=== PATIENT | male | born 1960 | race Caucasian/White ===

== ENCOUNTER 2017-08-19 15:27 | Emergency (ER) | payer MEDICAID ==
[2017-08-19 15:51] VITALS: BP 152/79
--- NOTE | 2017-08-19 16:11 | ER Document Report ---
ED Hand/Wrist Injury - General Chief Complaint: Finger Injury Stated Complaint: FINGER INJURY Time Seen by Provider: 08/19/17 16:05 Mode of Arrival: Ambulatory Information source: Patient TRAVEL OUTSIDE OF THE [place] IN LAST 30 DAYS: No - HPI Patient complains to provider of: wound L long finger Onset: Other - pt. states he has had a wound on his L long finger for "over a year" that "will not heal" - Related Data Allergies/Adverse Reactions: Penicillins Allergy (Verified 08/19/17 15:29) Past Medical History - General Information source: Patient - Social History Smoking Status: Current Every Day Smoker Chew tobacco use (# tins/day): No Frequency of alcohol use: None Drug Abuse: None Family History: None Patient has suicidal ideation: No Patient has homicidal ideation: No Renal/ Medical History: Denies: Hx Peritoneal Dialysis Review of Systems - Review of Systems Constitutional: No symptoms reported EENT: No symptoms reported Cardiovascular: No symptoms reported Respiratory: No symptoms reported Gastrointestinal: No symptoms reported -: Yes All other systems reviewed and negative Physical Exam - Vital signs Vitals: Temp Pulse Resp BP Pulse Ox 97.5 F 56 L 16 152/79 H 95 08/19/17 15:50 08/19/17 15:50 08/19/17 15:50 08/19/17 15:50 08/19/17 15:50 - General General appearance: Appears well In distress: None - Skin Skin irregularity: other - there is a open lesion on the dorsal aspect of the L long finger proximal phalanx without drainage or erythema. There is FROM of the digit; N/V intact Course - Vital Signs Vital signs: Temp Pulse Resp BP Pulse Ox 97.5 F 56 L 16 152/79 H 95 08/19/17 15:50 08/19/17 15:50 08/19/17 15:50 08/19/17 15:50 08/19/17 15:50 Discharge - Discharge Clinical Impression: Open wound Condition: Stable Disposition: HOME, SELF-CARE Additional Instructions: rest, take meds as prescribed, call wound care center in 2 days at [phone]; return here if worse Prescriptions: Cephalexin Monohydrate [Keflex 500 mg Capsule] 500 mg PO QID #20 capsule Diclofenac Sodium [Voltaren] 75 mg PO BID #14 tablet.
== END 2017-08-19 16:16 | disposition home or self-care (01) ==
LOC: ER 15:27
DX: S61.203A Unspecified open wound of left middle finger without damage to nail, initial encounter (principal); W45.0XXA Nail entering through skin, initial encounter; F17.200 Nicotine dependence, unspecified, uncomplicated; Z88.0 Allergy status to penicillin
CPT/HCPCS: 99283

== ENCOUNTER 2017-10-27 20:03 | Emergency (ER) | payer MEDICAID ==
--- NOTE | 2017-10-27 20:42 | ER Document Report ---
HPI - HPI Pain Level: 4 Notes: Patient is a 57-year-old male presents to the ED complaining of a chronic open wound to the left posterior third digit 1 year. Patient states that he has been evaluated at the emergency department August and has also been seen by a wound clinic. Patient states that his wound has not been healing. He denies any history of diabetes. Patient does admit to smoking but denies IV drug use. Patient states that he has continued pain to the open wound as well. Denies any other recent illness. He is eating and drinking without any difficulties. He is urinating normally and having normal bowel movements. Denies any headache , fever, neck pain, URI, sore throat, chest pain, palpitations, syncope, cough, shortness of breath, wheeze, dyspnea, abdominal pain, nausea/vomiting/diarrhea, urinary retention, dysuria, hematuria, numbness/tingling, muscle paralysis/ weakness, or rash. - ROS Systems Reviewed and Negative: Yes All other systems reviewed and negative Past Medical History - Social History Smoking Status: Current Every Day Smoker Family History: None Renal/ Medical History: Denies: Hx Peritoneal Dialysis Vertical Provider Document - CONSTITUTIONAL Agree With Documented VS: Yes Notes: PHYSICAL EXAMINATION: GENERAL: Well-appearing, well-nourished and in no acute distress. LUNGS: Breath sounds clear to auscultation bilaterally and equal. No wheezes rales or rhonchi. HEART: Regular rate and rhythm without murmurs, rubs, gallops. Musculoskeletal: Left hand: FROM to passive/active. Strength 5+/5. N/V intact distal. There does appear to be a chronic appearing open wound ([id number]) to the posterior prox phalanx of the 3rd digit. + mild tenderness. No purulence, streaks, abscess. Extremities: No cyanosis, clubbing, or edema b/l. Peripheral pulses 2+. Capillary refill less than 3 seconds. NEUROLOGICAL: Normal speech, normal gait. Normal sensory, motor exams PSYCH: Normal mood, normal affect. SKIN: see MSK exam. Warm, Dry, normal turgor, no rashes or lesions noted. - INFECTION CONTROL TRAVEL OUTSIDE OF THE [place] IN LAST 30 DAYS: No - RESPIRATORY O2 Sat by Pulse Oximetry: 95 Course - Re-evaluation Re-evalutation: 10/27/17 21:30 Patient is an afebrile, well-hydrated, 57-year-old male who presents to the ED with a nonhealing wound to the left posterior third digit. This is been an ongoing issue over the last year. Vitals are stable. PE is otherwise unremarkable. At this time, there does not appear to be an acute superficial bacterial infection associated. I will send him home with a pocket prescription of Keflex that he may begin with any worsening symptoms while awaiting follow-up. Wound dressing was placed today. Recommend continued direction per the wound clinic. X-ray was unremarkable for any acute pathology aside from a small radiopaque 3 mm foreign body to the proximal phalanx of the lateral thumb. This does not appear to be an acute injury as the skin has no signs of trauma. Low suspicion for any sepsis, septic joint, osteomyelitis, necrotizing fasciitis, or other systemic emergent condition at this time. Patient to monitor symptoms closely and seek medical attention with any acute changes. I will give him a referral to general surgeon for further evaluation and management. Recheck with your PCM in 3-5 days as well. Return to the ED with any worsening/concerning symptoms otherwise as reviewed discharge. Patient is in agreement. - Vital Signs Vital signs: Temp Pulse Resp BP Pulse Ox 97.6 F 70 14 151/77 H 95 10/27/17 20:11 10/27/17 20:11 10/27/17 20:11 10/27/17 20:11 10/27/17 20:11 Discharge - Discharge Clinical Impression: Non-healing wound Condition: Stable Disposition: HOME, SELF-CARE Instructions: Soap Cleansing ([facility]) Additional Instructions: Keep the skin clean Wash with soap and water Tylenol/ibuprofen if needed Triple antibiotic ointment daily Take medication as directed Monitor for any worsening symptoms Recheck with your PCM in 3-5 days Schedule a consult with General Surgeon for further evaluation and management. Consider having the foreign body removed from your thumb by a surgeon (General surgeon vs Orthopedic). Return to the ED with any worsening symptoms and/or development of fever, headache, chest pain, palpitations, syncope, shortness of breath, trouble breathing, abdominal pain, n/v/d, abscess, purulent discharge, red streaks, worsening swelling, or other worsening symptoms that are concerning to you. Prescriptions: Cephalexin Monohydrate [Keflex 500 mg Capsule] 500 mg PO TID #30 capsule Forms: Smoking Cessation Education, Elevated Blood Pressure Referrals: SPRING CARLOS DO [ACTIVE STAFF] - Follow up as needed CRYSTAL ALVARADO MD [ACTIVE STAFF] - Follow up in 3-5 days
--- NOTE | 2017-10-27 21:23 | RADIOLOGY REPORT (SQ) ---
EXAM DESCRIPTION: HAND LEFT 3 VIEWS COMPLETED DATE/TIME: 10/27/2017 9:12 pm REASON FOR STUDY: left open wound x1yr posterior 3rd prox digit COMPARISON: None. EXAM PARAMETERS: NUMBER OF VIEWS: Three views. TECHNIQUE: AP, lateral and oblique radiographic images acquired of the left hand. LIMITATIONS: None. FINDINGS: MINERALIZATION: Normal. BONES: No acute fracture or dislocation. No worrisome bone lesions. JOINTS: No effusions. SOFT TISSUES: No soft tissue swelling. 3 mm linear radiopaque density adjacent to the distal end of the proximal phalanx of the thumb. OTHER: No other significant finding. IMPRESSION: 3 MM LINEAR RADIOPAQUE FOREIGN OBJECT IN THE SOFT TISSUES ADJACENT TO THE DISTAL END OF THE PROXIMAL PHALANX OF THE THUMB. NO OTHER SIGNIFICANT FINDINGS. NO ABNORMAL FINDINGS INVOLVING TH E 3RD FINGER. TECHNICAL DOCUMENTATION: JOB ID: [id number] [employer]- All Rights Reserved
[2017-10-27 21:58] VITALS: BP 133/75
== END 2017-10-27 21:58 | disposition home or self-care (01) ==
LOC: ER 20:03
DX: S61.203A Unspecified open wound of left middle finger without damage to nail, initial encounter (principal); X58.XXXA Exposure to other specified factors, initial encounter; M79.5 Residual foreign body in soft tissue; F17.200 Nicotine dependence, unspecified, uncomplicated
CPT/HCPCS: 99283

== ENCOUNTER 2018-05-12 10:39 | Emergency (ER) | payer MEDICAID ==
--- NOTE | 2018-05-12 11:01 | ER Document Report ---
ED Medical Screen (RME) - General Chief Complaint: Wound Infection Stated Complaint: LEFT FINGER INJURY Time Seen by Provider: 05/12/18 10:50 Mode of Arrival: Ambulatory TRAVEL OUTSIDE OF THE [place] 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 He has been seen for this several times in the past as recently as October without any improvement in his symptoms. He does not currently have a family medicine doctor and has not seen any other outside of the hospital providers for this. - Related Data Allergies/Adverse Reactions: Penicillins Allergy (Verified 05/12/18 10:40) Past Medical History - General Information source: Patient - Social History Cigarette use (# per day): Yes Renal/ Medical History: Denies: Hx Peritoneal Dialysis Review of Systems - Review of Systems -: Yes All other systems reviewed and negative Physical Exam - Vital signs Vitals: Temp Pulse Resp BP Pulse Ox 97.8 F 66 16 152/87 H 97 05/12/18 10:47 05/12/18 10:47 05/12/18 10:47 05/12/18 10:47 05/12/18 10:47 - General General appearance: Appears well In distress: None - HEENT Head: Normocephalic Eyes: Normal Conjunctiva: Normal - Respiratory Respiratory status: No respiratory distress Chest status: Nontender Chest palpation: Normal - Cardiovascular Rhythm: Regular Heart sounds: Normal auscultation Murmur: No - Abdominal Inspection: Normal - Back Back: Normal - Extremities Hand: Other - The left hand is normal in appearance at the level of the wrist There is normal range of motion at the wrist Normal range of motion in all 5 digits Brisk capillary refill in all 5 digits Strong palpable radial pulse At the dorsal aspect of the third digit is a large eschar type wound just distal to the PIP which is extending from the edge of the palmar aspect on either side , there is no appreciable purulent drainage, the edges are heaped pink and clean - Neurological Neuro grossly intact: Yes Cognition: Normal Orientation: AAOx4 [place] Coma Scale Eye Opening: Spontaneous [employer] Coma Scale Verbal: Oriented Kend[place] Coma Scale Motor: Obeys Commands Kendall Coma Scale Total: 15 Course - Re-evaluation Re-evalutation: 05/12/18 11:00 57-year-old man who presents for chronic wound on the back of the left hand. He does not appear to involve any of the deep structures, this is been a chronic wound which has been poorly healing. Patient's been evaluated for this twice in the past. We will plan to obtain an x-ray of the hand, will investigate if there is potential osteomyelitis or underlying infection. Do not believe this represents flexor or extensor tenosynovitis given his intact range of motion lack of sausage digit and systemic signs of infection. We will reassess following x-ray. Will likely plan for discharge with brief prescription for pain medication as well as prescription for presumptive coverage of surrounding cellulitis with Keflex. - Vital Signs Vital signs: Temp Pulse Resp BP Pulse Ox 97.8 F 66 16 152/87 H 97 05/12/18 10:47 05/12/18 10:47 05/12/18 10:47 05/12/18 10:47 05/12/18 10:47 Doctor's Discharge - Discharge Clinical Impression: Open wound, hand Qualifiers: Encounter type: sequela Open wound type: unspecified Foreign body presence: unspecified Laterality: left Qualified Code(s): S61.402S - Unspecified open wound of left hand, sequela Condition: Good Disposition: HOME, SELF-CARE Instructions: Laceration Care ([facility]), Antibiotic Ointment Protection ([facility]), Soap Cleansing ([facility]), Prophylactic Antibiotic ([facility]) Additional Instructions: You were seen today in the emergency department for the wound on your hand. You had an evaluation including a physical exam as well as x-ray, it does not look like there is an infection at the bone at this time. You must schedule an appointment with the primary physician in the coming 2 weeks for evaluation of this wound in your hand. Use the antibiotic prescribed you to prevent an infection from developing. Return for fevers chills worsening pain or swelling in the hand. Prescriptions: Cephalexin Monohydrate [Keflex 500 mg Capsule] 500 mg PO Q6H #28 capsule Hydrocodone/Acetaminophen [[place] 5-325 mg Tabs (6 Tab/ER Disp)] 6 tab PO Q8H PRN #1 dspk PRN Reason: For Pain Scale 4-5 Forms: Smoking Cessation Education, Elevated Blood Pressure
--- NOTE | 2018-05-12 12:15 | RADIOLOGY REPORT (SQ) ---
EXAM DESCRIPTION: FINGER LEFT COMPLETED DATE/TIME: 05/12/2018 11:25 am REASON FOR STUDY: possible osteo COMPARISON: 10/27/2017. NUMBER OF VIEWS: Three views. TECHNIQUE: AP, lateral, and oblique images acquired of the left third finger. LIMITATIONS: None. FINDINGS: MINERALIZATION: Normal. BONES: No acute fracture or dislocation. No worrisome bone lesions. No significant osteophytes. JOINTS: No erosions. No herrera-articular osteopenia. No chondrocalcinosis. SOFT TISSUES: No swelling. No calcifications. OTHER: Small linear radiopaque density adjacent to the thumb is unchanged. IMPRESSION: NEGATIVE RADIOGRAPHS OF THE LEFT THIRD FINGER. SMALL RADIOPAQUE DENSITY ADJACENT TO THE THUMB IS UNCHANGED. COMMENT: SITE OF TRAUMA/COMPLAINT MARKED/STAMP COMPLETED: YES. TECHNICAL DOCUMENTATION: JOB ID: [id number] [employer]- All Rights Reserved Reading location - IP/workstation name: [email or web address]
[2018-05-12] MEDS ORDERED: HYDROCODONE/ACETAMINOPHEN 5-325 MG (6 TAB/ER DISP) PO PRN (12:42)
[2018-05-12 12:54] VITALS: BP 148/89
== END 2018-05-12 12:53 | disposition home or self-care (01) ==
LOC: ER 10:39
DX: S61.402S Unspecified open wound of left hand, sequela (principal); W22.09XD Striking against other stationary object, subsequent encounter; Z88.0 Allergy status to penicillin; F17.210 Nicotine dependence, cigarettes, uncomplicated
CPT/HCPCS: 99283

== ENCOUNTER 2018-10-26 10:44 | Day surgery (SDC) | payer MEDICAID ==
--- NOTE | 2018-10-19 10:55 | RADIOLOGY REPORT (SQ) ---
EXAM DESCRIPTION: CHEST PA/LATERAL COMPLETED DATE/TIME: 10/19/2018 10:38 am REASON FOR STUDY: PRE-OP COMPARISON: 09/06/2018 EXAM PARAMETERS: NUMBER OF VIEWS: two views TECHNIQUE: Digital Frontal and Lateral radiographic views of the chest acquired. RADIATION DOSE: NA LIMITATIONS: none FINDINGS: LUNGS AND PLEURA: No opacities, masses or pneumothorax. No pleural effusion. MEDIASTINUM AND HILAR STRUCTURES: No masses or contour abnormalities. HEART AND VASCULAR STRUCTURES: Heart normal size. No evidence for failure. BONES: No acute findings. HARDWARE: None in the chest. OTHER: No other significant finding. IMPRESSION: NO SIGNIFICANT RADIOGRAPHIC FINDING IN THE CHEST. TECHNICAL DOCUMENTATION: JOB ID: [id number] [employer]- All Rights Reserved Reading location - IP/workstation name: [email or web address]
[2018-10-19 11:09] LABS: APPEARANCE,URINE CLEAR; BILIRUBIN,URINE NEGATIVE (NEGATIVE); COLOR,URINE YELLOW; GLUCOSE, URINE NEGATIVE (NEGATIVE); KETONES,URINE NEGATIVE (NEGATIVE); LEUKOCYTE ESTERASE,URINE NEGATIVE (NEGATIVE); NITRITE,URINE NEGATIVE (NEGATIVE); PROTEIN,URINE 30 mg/dL (NEGATIVE); URINE SPECIFIC GRAVITY 1.018; UROBILINOGEN,URINE NEGATIVE mg/dL (<2.0)
--- NOTE | 2018-10-19 12:22 | EKG REPORT ---
SEVERITY:- ABNORMAL ECG - SINUS RHYTHM BORDERLINE LEFT AXIS DEVIATION NO CHANGE FROM 09/14/18 EKG : Confirmed by: Richi Gonzales MD 19-Oct-2018 12:22:22
[~2018-10-26 10:44] MED LIST: BUPIVACAINE HCL 0.5 % INJ/PF 30 ML SDV ONE; CLINDAMYCIN 600 MG/D5W RTU 600 MG/50 ML RTUPB IV PRN; LACTATED RINGERS 1000 ML IV PRN; LIDOCAINE 0.5% INJ-PF (5 MG/ML) 50 ML SDV SUBCUT PRN; LIDOCAINE 1% INJ-PF (10 MG/ML) 30 ML SDV ONE; PROPOFOL INJ 200 MG/20 ML VIAL IV ONE
[2018-10-26] MEDS ORDERED: ALBUTEROL SULFATE 0.083% NEB 2.5 MG/3 ML AMPUL NEB ONE (11:44)
[2018-10-26] MEDS ORDERED: MIDAZOLAM 2 MG/2 ML INJ ONE (11:52)
[2018-10-26] MEDS ORDERED: FENTANYL CITRATE INJ/PF 250 MCG/5 ML AMPULE ONE (11:52)
[2018-10-26] MEDS ORDERED: ACETAMINOPHEN 1,000 MG/100 ML RTUPB IV ONE (12:00)
[2018-10-26] MEDS ORDERED: KETOROLAC TROMETHAMINE 60 MG/2 ML SDV ONE (12:00)
[2018-10-26] MEDS ORDERED: FENTANYL CITRATE INJ/PF 100 MCG/2 ML AMPUL ONE ×2 (12:00→13:19)
[2018-10-26] MEDS ORDERED: ONDANSETRON HCL INJ/PF 4 MG/2 ML SDV ONE (12:00)
[2018-10-26] MEDS ORDERED: PROMETHAZINE HCL INJ 25 MG/1 ML VIAL IV PRN ×2 (12:25)
[2018-10-26] MEDS ORDERED: FENTANYL CITRATE INJ/PF 100 MCG/2 ML AMPUL IV PRN ×3 (12:25)
[2018-10-26] MEDS ORDERED: MEPERIDINE HCL/PF INJ 25 MG/1 ML DISP.SYRIN IV PRN (12:25)
[2018-10-26] MEDS ORDERED: DIPHENHYDRAMINE HCL 50 MG/ML VIAL IV PRN (12:25)
[2018-10-26] MEDS ORDERED: MORPHINE SULFATE 10 MG/ML INJ IV PRN ×2 (12:25→12:44)
--- NOTE | 2018-10-26 12:43 | Operative Report ---
Operative Report DATE OF SURGERY: 10/26/18 PREOPERATIVE DIAGNOSIS: Lesion left middle finger POSTOPERATIVE DIAGNOSIS: Same OPERATION: Excisional biopsy left middle finger SURGEON: SPRING CARLOS ANESTHESIA: LMAC TISSUE REMOVED OR ALTERED: Biopsy/culture COMPLICATIONS: None ESTIMATED BLOOD LOSS: Minimal PROCEDURE: Indication for above procedure: 58-year-old male who presents my office with a lesion along his left middle finger. Patient was sent to oncology but did not follow-up with the appropriate workup. Continued to have pain and worsening of his lesion. We attempted multiple occasions to set the patient up for biopsy however patient was having family issues and cannot undergo treatment. Once patient was set up we discussed treatment options including operative versus nonoperative intervention. 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 Patient set up for definitive treatment in 7 days once biopsy is complete. Procedure In Detail: Patient was seen and evaluated in the preoperative holding area. The RIGHT upper extremity was initialized and marked. Patient received 2g of Ancef IV for bacterial prophylaxis. Patient was taken back to the operative room where transferred to the operative table and placed under general anesthesia. Once they were adequately anesthetized a nonsterile tourniquet was placed on the upper extremity. A surgical team debriefing was performed ensuring all instrumentation was available, the surgical procedure was discussed with possible concerns reviewed. The upper extremity was prepped with Betadine and draped in a sterile fashion. A timeout was done identifying correct patient, procedure and extremity everyone in attendance agree with this and verbalized no concerns. The extremity was elevated the tourniquet was inflated to 250 mmHg. Incisional biopsy was made longitudinally taking approximately 2 mm of tissue from the lesion and proximal to the lesion adjacent to normal-appearing skin. This was sent to pathology in formalin. The proximal aspect marked with a 4-0 nylon. Swab culture was taken from the lesion as well along with an additional cuff of tissue sent for AFB, fungal, aerobic and anaerobic. At completion a small incisional wound was closed with 4-0 nylon. Tourniquet was deflated no significant bleeding appreciated. Wound was dressed with Adaptic, 4 x 4's and a loosely applied Kerlix. Sponge counts, instrument counts, needle counts were correct. Patient was then awoken from anesthesia. Transferred from the operating room table to the operating room stretcher. There was no intraoperative complications patient tolerated procedure well stable to PACU. Postoperative plan: Plan will be for definitive treatment likely ray resection in 1 week pending diagnosis.
[2018-10-26] MEDS ORDERED: ONDANSETRON HCL INJ/PF 4 MG/2 ML SDV IV PRN (12:44)
[2018-10-26] MEDS ORDERED: OXYCODONE-ACETAMINOPHEN 5-325 MG TABLET PO PRN (12:44)
--- NOTE | 2018-10-26 12:46 | Discharge Summary ---
Discharge Summary (SDC) - Discharge Final Diagnosis: Lesion left middle finger Date of Surgery: 10/26/18 Discharge Date: 10/26/18 Condition: Good Treatment or Instructions: Schedule Follow Up w/ Dr. Jose Juan Ford @ [facility] to be seen in 10-14 days or as scheduled [place]: [place]: [place]: Keep dressing clean/dry/intact until follow-up Ice and elevate May begin finger range of motion attempting to make full fist. Stool softener of choice when on pain medication. ORAL NARCOTIC MEDICATION: You have been given a prescription for pain control. This medication is a narcotic. It's best taken with food, as nausea can result if taken on an empty stomach. Don't operate machinery or drive within six hours of taking this medication. Do not combine this medicine with alcohol, or with any medication which can cause sedation (such as cold tablets or sleeping pills) unless you get permission from the physician. Narcotics tend to cause constipation. If possible, drink plenty of fluids and eat a diet high in fiber and fruits. Please be aware that prescription narcotics also have the potential for abuse. People become addicted to these medications because of the general sense of wellbeing that they induce. This feeling along with a significant reduction in tension, anxiety, and aggression provides a stimulating seductive quality to these drugs. Once your pain is under control, we encourage you to discard your unused narcotics. Prescriptions: Oxycodone HCl/Acetaminophen [Percocet 5-325 mg Tablet] 1 tab PO Q6 PRN #25 tablet PRN Reason: Discharge Diet: As Tolerated Respiratory Treatments at Home: Deep Breathing/Coughing Discharge Activity: No Lifting Over 10 Pounds, No Lifting/Push/Pulling Report the Following to Your Physician Immediately: Fever over 101 Degrees, U nusual Bleeding, Redness, Swelling, Warmth, Increased Soreness
[2018-10-26] MEDS ORDERED: OXYCODONE-ACETAMINOPHEN 5-325 MG TABLET ONE (14:16)
[2018-10-26 15:22] VITALS: BP 125/78
== END 2018-10-26 15:10 | disposition home or self-care (01) ==
LOC: OROUT 10:44
PROVIDERS: ATTEND Orthopaedic Surgery
DX: C44.629 Squamous cell carcinoma of skin of left upper limb, including shoulder (principal); F17.210 Nicotine dependence, cigarettes, uncomplicated; Z79.891 Long term (current) use of opiate analgesic; Z79.1 Long term (current) use of non-steroidal anti-inflammatories (NSAID); Z85.828 Personal history of other malignant neoplasm of skin
CPT/HCPCS: 93010; 93005; 87206; 87116; 87101; 81001; 87015; 88305 ×2; 71046; 11106; J2250; J3490; J1885; J3010; J2405; J2704; J0131; 400

== ENCOUNTER → 2018-11-02 | Day surgery (SDC) | payer MEDICAID ==
[2018-10-19 12:25] VITALS: BP 130/80
[~2018-11-02] MED LIST changes: +ACETAMINOPHEN 0 MG/0 ML RTUPB IV ONE; +ALBUTEROL SULFATE 0.083% NEB 2.5 MG/3 ML AMPUL NEB ONE; +DEXAMETHASONE SOD PHOSPHATE INJ 4 MG/1 ML VIAL ONE; +FENTANYL CITRATE INJ/PF 100 MCG/2 ML AMPUL ONE; -LACTATED RINGERS 1000 ML IV PRN; -LIDOCAINE 1% INJ-PF (10 MG/ML) 30 ML SDV ONE; +MIDAZOLAM 2 MG/2 ML INJ ONE; +ONDANSETRON HCL INJ/PF 4 MG/2 ML SDV ONE
== END ==
LOC: OROUT 10:38
PROVIDERS: ATTEND Orthopaedic Surgery
DX: Z01.818 Encounter for other preprocedural examination (principal)
CPT/HCPCS: J1100; J3010; J2704; J0131; J2250; J2405; J3490

== ENCOUNTER → 2018-11-21 | Outpatient (CLI) | payer MEDICAID ==
--- NOTE | 2018-11-21 10:15 | RADIOLOGY REPORT (SQ) ---
EXAM DESCRIPTION: CT CHEST WITH; CT ABD/PELVIS WITH IV ORAL COMPLETED DATE/TIME: 11/21/2018 9:40 am; 11/21/2018 9:24 am REASON FOR STUDY: SQUAMOUS CELL CARCINOMA SKIN/ LEFT UPPER LIMB, INC SHOULDER C44.629 SQUAMOUS CELL CARCINOMA SKIN/ LEFT UPPER LIMB, INC S COMPARISON: Two-view chest 10/19/2018 CONTRAST TYPE AND DOSE: contrast/concentration: Isovue 350.00 mg/ml; Total Contrast Delivered: 100.0 ml; Total Saline Delivered: 72.0 ml RENAL FUNCTION: Creatinine 1.2 TECHNIQUE: CT scan of the chest performed using helical scanning technique with dynamic intravenous contrast injection. Images reviewed with lung, soft tissue and bone windows. Reconstructed coronal a nd sagittal MPR images reviewed. All images stored on PACS. CT scan of the abdomen and pelvis performed with intravenous and with oral contrastusing helical scan elena technique with dynamic intravenous contrast injection. Images reviewed with lung, soft tissue a nd bone windows. Reconstructed coronal and sagittal MPR images reviewed. Delayed images for evaluat ion of the urinary system also acquired and evaluated. All images stored on PACS. All CT scanners at this facility use dose modulation, iterative reconstruction, and/or weight based d osing when appropriate to reduce radiation dose to as low as reasonably achievable (ALARA). [facility]: Dose Right [facility]: CareDose [facility]: Dose Right [facility]: Teradose 4D [facility]: Smart [employer] RADIATION DOSE: CT Rad equipment meets quality standard of care and radiation dose reduction techniq ues were employed. CTDIvol: 12.6 - 17.0 mGy. DLP: 2314 mGy-cm. . LIMITATIONS: None. FINDINGS: CHEST: LUNGS AND PLEURA: On axial image 36/135, a 4 to 5 mm ill-defined alveolar nodule is present. Remainder of the lungs are well inflated and clear. Mild changes of obstructive lung disease in the bilateral upper lobes. No pleural effusion. No pneumothorax. HILAR AND MEDIASTINAL STRUCTURES: No identified masses or abnormal nodes. HEART AND VASCULAR STRUCTURES: No aneurysm or dissection. No central pulmonary emboli. No pericardi al effusion. HARDWARE: None. THYROID AND OTHER SOFT TISSUES: No masses. No adenopathy. BONES: No significant finding. OTHER: No other significant finding. ABDOMEN AND PELVIS: LIVER: Normal size. No masses. No dilated ducts. SPLEEN: Normal size. No focal lesions. PANCREAS: No masses. No significant calcifications. No adjacent inflammation or peripancreatic fluid collections. Pancreatic duct not dilated. GALLBLADDER: No identified stones by CT criteria. No inflammatory changes to suggest cholecystitis. ADRENAL GLANDS: No significant masses or asymmetry. RIGHT KIDNEY AND URETER: No solid masses. 3.5 cm right midpole renal cortical cyst. No significant calcification. No hydronephrosis or hydroureter. LEFT KIDNEY AND URETER: No solid masses. 3.5 cm left upper pole renal cortical cyst. 1.5 cm left lo wer pole renal cortical cyst. No significant calcification. No hydronephrosis or hydroureter. AORTA AND VESSELS: No aneurysm. No dissection. Renal arteries, SMA, celiac without stenosis. RETROPERITONEUM: No retroperitoneal adenopathy, hemorrhage or masses. BOWEL AND PERITONEAL CAVITY: Patient drank oral contrast. No CT evidence of bowel obstruction. No f ree intraperitoneal air or fluid. Scattered colonic diverticuli are present without CT signs of acut e diverticulitis. APPENDIX: Normal. ABDOMINAL WALL: No masses. No hernias. PELVIS: No mass or free fluid. Normal bladder. BONES: Mild lower lumbar facet arthropathy OTHER: No other significant finding. IMPRESSION: 4 to 5 mm alveolar nodule right upper lobe. Follow-up as per Fleischner criteria. Otherwise unremarkable CT scan of the chest abdomen and pelvis COMMENT: FLEISCHNER CRITERIA FOR FOLLOW-UP OF PULMONARY NODULES Incidentally detected new nodules in persons 35 or older. HIGH RISK: History of smoking or other known risk factors. <6mm single solid nodule: LOW RISK: no routine followup. HIGH RISK: optional CT 12 mo. TECHNICAL DOCUMENTATION: JOB ID: [id number] Quality ID # [id number]: Final reports with documentation of one or more dose reduction techniques (e.g., Au tomated exposure control, adjustment of the mA and/or kV according to patient size, use of iterative reconstruction technique) 2010 [employer]- All Rights Reserved Reading location - IP/workstation name: [email or web address]
== END ==
LOC: RAD 08:43
PROVIDERS: ATTEND Orthopaedic Surgery
DX: C44.629 Squamous cell carcinoma of skin of left upper limb, including shoulder (principal)
CPT/HCPCS: 71260; 74177; 82565

== ENCOUNTER 2018-12-27 15:27 | Emergency (ER) | payer MEDICAID ==
[2018-12-27 15:34] VITALS: BP 152/84
--- NOTE | 2018-12-27 16:08 | ER Document Report ---
ED Medical Screen (RME) - General Chief Complaint: Wound Infection Stated Complaint: LEFT MIDDLE FINGER PAIN/SKIN CANCER Time Seen by Provider: 12/27/18 16:02 Primary Care Provider: SPRING CARLOS DO [Primary Care Provider] - Follow up as needed TRAVEL OUTSIDE OF THE [place] IN LAST 30 DAYS: No - HPI Notes: 12/27/18 16:05 Patient is a 58-year-old male with a history of skin cancer to his left third digit of the hand presents the emergency department complaining of increased pain and discharge from the wound. Patient states that he is currently working through preop clearance is to have his finger removed by Dr. Carlos. Patient states that overall his symptoms began 1 year ago. He has been to multiple medical facilities. Denies WEISS, fever, neck pain, URI, CP, SOB, Abd pain, or rash. I have treated and performed a rapid initial assessment of this patient. A comprehensive ED assessment and evaluation of the patient, analysis of test results and completion of medical decision making process will be conducted by additional ED providers. PHYSICAL EXAMINATION: GENERAL: Well-appearing, well-nourished and in no acute distress. A&Ox4. Answers questions appropriately. LUNGS: Breath sounds clear to auscultation bilaterally and equal. No wheezes rales or rhonchi. HEART: Regular rate and rhythm without murmurs, rubs, gallops. Skin: left 3rd digit: there is discharge with surrounding mild erythema and tenderness. Skin ulceration/erosion noted. - Related Data Allergies/Adverse Reactions: Penicillins Allergy (Verified 10/26/18 11:15) Past Medical History - Past Medical History Cardiac Medical History: Denies: Hx Coronary Artery Disease, Hx Heart Attack, Hx Hypertension Pulmonary Medical History: Denies: Hx Asthma, Hx Bronchitis, Hx COPD, Hx Pneumonia Neurological Medical History: Denies: Hx Cerebrovascular Accident, Hx Seizures Renal/ Medical History: Denies: Hx Peritoneal Dialysis Musculoskeltal Medical History: Denies Hx Arthritis - Immunizations Hx Diphtheria, Pertussis, Tetanus Vaccination: Yes - 2017 History of Influenza Vaccine for 06/2017 - 11/2017 Season: No Physical Exam - Vital signs Vitals: Temp Pulse Resp BP Pulse Ox 97.5 F 72 20 152/84 H 97 12/27/18 15:33 12/27/18 15:33 12/27/18 15:33 12/27/18 15:33 12/27/18 15:33 Course - Vital Signs Vital signs: Temp Pulse Resp BP Pulse Ox 97.5 F 72 20 152/84 H 97 12/27/18 15:33 12/27/18 15:33 12/27/18 15:33 12/27/18 15:33 12/27/18 15:33 Doctor's Discharge - Discharge Referrals: SPRING CARLOS DO [Primary Care Provider] - Follow up as needed
== END 2018-12-27 18:00 | disposition left against medical advice (07) ==
LOC: ER 15:27
DX: Z53.21 Procedure and treatment not carried out due to patient leaving prior to being seen by health care provider (principal); M79.645 Pain in left finger(s)
CPT/HCPCS: 99281

== ENCOUNTER → 2019-02-01 | Day surgery (SDC) | payer MEDICAID ==
[2019-01-28 10:25] LABS: APPEARANCE,URINE SLIGHTLY-CLOUDY; BILIRUBIN,URINE NEGATIVE (NEGATIVE); COLOR,URINE YELLOW; GLUCOSE, URINE NEGATIVE (NEGATIVE); KETONES,URINE NEGATIVE (NEGATIVE); LEUKOCYTE ESTERASE,URINE TRACE (NEGATIVE); NITRITE,URINE NEGATIVE (NEGATIVE); PROTEIN,URINE NEGATIVE (NEGATIVE); URINE SPECIFIC GRAVITY 1.023; UROBILINOGEN,URINE NEGATIVE mg/dL (<2.0)
[2019-01-28 10:29] LABS: ABSOLUTE BASOPHILS # (AUTO) 0.1 10^3/uL (0.0-0.2); ABSOLUTE EOSINOPHILS # (AUTO) 0.4 10^3/uL (0.0-0.6); ABSOLUTE LYMPHOCYTES (AUTO) 2.3 10^3/uL (0.5-4.7); ABSOLUTE MONOCYTES (AUTO) 0.7 10^3/uL (0.1-1.4); ABSOLUTE NEUT (AUTO) 5.3 10^3/uL (1.7-8.2); BASOPHILS % (AUTO) 0.9 % (0-2); EOSINOPHILS % (AUTO) 4.4 % (0-6); HEMATOCRIT 45.2 % (37.9-51.0); LYMPHOCYTES % (AUTO) 25.7 % (13-45); MEAN CORPUSCULAR HEMOGLOBIN 31.4 pg (27.0-33.4); MEAN CORPUSCULAR HGB CONC 35.3 g/dL (32.0-36.0); MEAN CORPUSCULAR VOLUME 89 fl (80-97); MONOCYTES % (AUTO) 8.5 % (3-13); PLATELET COUNT 288 10^3/uL (150-450); RED BLOOD COUNT 5.09 10^6/uL (4.35-5.55); RED CELL DISTRIBUTION WIDTH 13.5 % (11.5-14.0); SEGMENTED NEUTROPHILS % (AUTO) 60.5 % (42-78); TOTAL CELLS COUNTED % (AUTO) 100 %; WHITE BLOOD COUNT 8.8 10^3/uL (4.0-10.5)
[2019-01-28 10:52] LABS: ANION GAP 9 (5-19); BLOOD UREA NITROGEN 18 mg/dL (7-20); CALCIUM 10.1 mg/dL (8.4-10.2); CARBON DIOXIDE 27 mmol/L (22-30); CHLORIDE 110 mmol/L (98-107); GLUCOSE 108 mg/dL (75-110); SODIUM 145.9 mmol/L (137-145)
--- NOTE | 2019-01-28 11:11 | RADIOLOGY REPORT (SQ) ---
EXAM DESCRIPTION: CHEST PA/LATERAL COMPLETED DATE/TIME: 01/28/2019 10:29 am REASON FOR STUDY: PRE-OP COMPARISON: 10/19/2018 EXAM PARAMETERS: NUMBER OF VIEWS: two views TECHNIQUE: Digital Frontal and Lateral radiographic views of the chest acquired. RADIATION DOSE: NA LIMITATIONS: none FINDINGS: LUNGS AND PLEURA: No opacities, masses or pneumothorax. No pleural effusion. MEDIASTINUM AND HILAR STRUCTURES: No masses or contour abnormalities. HEART AND VASCULAR STRUCTURES: Heart normal size. No evidence for failure. BONES: No acute findings. HARDWARE: None in the chest. OTHER: No other significant finding. IMPRESSION: NO SIGNIFICANT RADIOGRAPHIC FINDING IN THE CHEST. TECHNICAL DOCUMENTATION: JOB ID: [id number] [employer]- All Rights Reserved Reading location - IP/workstation name: [email or web address]
--- NOTE | 2019-01-28 13:00 | EKG REPORT ---
SEVERITY:- BORDERLINE ECG - SINUS RHYTHM BORDERLINE LEFT AXIS DEVIATION BORDERLINE T WAVE ABNORMALITIES : Confirmed by: Richi Gonzales MD 28-Jan-2019 12:59:00
[~2019-02-01] MED LIST changes: -ALBUTEROL SULFATE 0.083% NEB 2.5 MG/3 ML AMPUL NEB ONE; +CLINDAMYCIN 600 MG/D5W RTU 600 MG/50 ML RTUPB IV ONE; -DEXAMETHASONE SOD PHOSPHATE INJ 4 MG/1 ML VIAL ONE; +DEXMEDETOMIDINE INJ 80 MCG/20 ML VIAL IV ONE; +EPHEDRINE SULFATE INJ 50 MG/1 ML AMPULE ONE; +LACTATED RINGERS 1000 ML IV PRN; +LIDOCAINE 1% INJ-PF (10 MG/ML) 30 ML SDV ONE; -ONDANSETRON HCL INJ/PF 4 MG/2 ML SDV ONE
[2019-02-01 06:11] VITALS: BP 144/83
== END ==
LOC: OROUT 05:19
PROVIDERS: ATTEND Orthopaedic Surgery
DX: Z01.812 Encounter for preprocedural laboratory examination (principal); C44.629 Squamous cell carcinoma of skin of left upper limb, including shoulder
CPT/HCPCS: 93005; 36415; 85025; 80048; 81001; 71046; 93010; S0077; J0131; J2250; J2704; J3010; J3490

== ENCOUNTER 2019-02-26 14:19 | Day surgery (SDC) | payer MEDICAID ==
[~2019-02-26 14:19] MED LIST changes: -ACETAMINOPHEN 0 MG/0 ML RTUPB IV ONE; -DEXMEDETOMIDINE INJ 80 MCG/20 ML VIAL IV ONE; -EPHEDRINE SULFATE INJ 50 MG/1 ML AMPULE ONE; -FENTANYL CITRATE INJ/PF 100 MCG/2 ML AMPUL ONE; -LACTATED RINGERS 1000 ML IV PRN; -LIDOCAINE 0.5% INJ-PF (5 MG/ML) 50 ML SDV SUBCUT PRN; -LIDOCAINE 1% INJ-PF (10 MG/ML) 30 ML SDV ONE; -MIDAZOLAM 2 MG/2 ML INJ ONE; -PROPOFOL INJ 200 MG/20 ML VIAL IV ONE
[2019-02-26] MEDS ORDERED: ALBUTEROL SULFATE 0.083% NEB 2.5 MG/3 ML AMPUL NEB ONE (14:28)
[2019-02-26] MEDS ORDERED: MIDAZOLAM 2 MG/2 ML INJ ONE (14:34)
[2019-02-26] MEDS ORDERED: FENTANYL CITRATE INJ/PF 100 MCG/2 ML AMPUL ONE (14:34)
[2019-02-26] MEDS ORDERED: ONDANSETRON HCL INJ/PF 4 MG/2 ML SDV ONE (14:34)
[2019-02-26] MEDS ORDERED: DEXAMETHASONE SOD PHOSPHATE INJ 4 MG/1 ML VIAL ONE (14:34)
[2019-02-26] MEDS ORDERED: PROPOFOL INJ 200 MG/20 ML VIAL IV ONE (14:35)
[2019-02-26] MEDS ORDERED: SUCCINYLCHOLINE CHLORIDE INJ 200 MG/10 ML VIAL ONE (14:55)
--- NOTE | 2019-02-26 16:24 | Operative Report ---
Operative Report DATE OF SURGERY: 02/26/19 PREOPERATIVE DIAGNOSIS: Left Middle Finger Squamous Cell Carcinomal POSTOPERATIVE DIAGNOSIS: Same OPERATION: Left hand third ray resection SURGEON: SPRING CARLOS ANESTHESIA: GA COMPLICATIONS: None ESTIMATED BLOOD LOSS: Minimal PROCEDURE: Indication for above procedure: 58-year-old male who presented to my office with a lesion along his hand. Patient ultimately had biopsy which demonstrated squamous cell carcinoma. Patient required medical clearance to proceed with operative intervention once m edically cleared for operative treatment proceeded to discuss treatment options which included left third ray resection. Risks and benefits of the surgical procedure were explained to the patient including recurrence I discussed the risk and benefits joint decision was made to proceed with operative intervention. Procedure In Detail: Patient was seen and evaluated in the preoperative holding area. The LEFT upper extremity was initialized and marked. Patient received 2g of Ancef IV for bacterial prophylaxis. Patient was taken back to the operative room where transferred to the operative table and placed under general anesthesia. Once they were adequately anesthetized a nonsterile tourniquet was placed on the upper extremity. A surgical team debriefing was performed ensuring all inst rumentation was available, the surgical procedure was discussed with possible concerns reviewed. The upper extremity was prepped with Betadine and draped in a sterile fashion. A timeout was done identifying correct patient, procedure and extremity everyone in attendance agree with this and verbalized no concerns. The extremity was elevated the tourniquet was inflated to 250 mmHg. Longitudinal skin incision was made dorsally and curved radially ulnarly ending in a V-shaped incision volarly. Unfortunately the incision required larger involvement of the adjacent index and ring finger skin due to the extensive nature of the lesion. Necessary steps were made in order to maximize resection and avoid intralesional excision or marginal excision. Once skin flaps were developed. Dorsal veins were coagulated with bipolar cautery. The flexor and extensor tendons were then sharply excised. The digital nerve and artery to the index and ring finger were identified and preserved. The MCP joint capsule was then incised and the digit disarticulated at this level which obtained the involved lesion. This lesion was then marked with one stitch ulnarly to stitch proximally and 3 stitches radially so resection amount could be determined. Wound was then copiously irrigated with normal saline. Instruments used for this portion of the case were placed on a separate table so new instruments could be used for completion of the surgical procedure. The volar and dorsal interossei with an elevated from the metacarpal. An oblique osteotomy was made distal to the ECRB insertion the edges were then smoothed to avoid postoperative irritation. The flexor extensor tendon was then allowed to retract. The ulnar and radial digital nerves were identified and neurectomy performed allowing the nerve to retract into the muscle of the interossei. Wound was copiously irrigated with normal saline. The intermetacarpal ligament was then reapproximated with 3-0 Ethibond suture. Tourniquet was deflated. Any peripheral bleeding was controlled with bipolar cautery until the wound was dry. Subcutaneous tissues were then closed with interrupted 4-0 Monocryl suture after provisional closure rotation of the index and ring finger was performed to ensure there is no evidence of scissoring between the digits. Skin was then closed with interrupted horizontal mattress 3-0 nylon sutures and simple 3-0 nylon sutures. 30 cc of 0.5% bupivacaine without epinephrine was injected for postoperative pain control. Wound was dressed with Xeroform 4 x 4's and patient was placed in a volar resting splint immobilizing the MCP joint of the index and ring finger to avoid scissoring immediately postoperatively. Sponge counts, instrument counts, needle counts were correct. Patient was then awoken from anesthesia. Transferred from the operating room table to the operating room stretcher. There was no intraoperative complications patient tolerated procedure well stable to PACU. Postoperative plan: Patient will follow in the office for wound check. We will discuss pathology results if there is inadequate margins we will discuss additional procedure.
--- NOTE | 2019-02-26 16:25 | Discharge Summary ---
Discharge Summary (SDC) - Discharge Final Diagnosis: Squamous cell carcinoma left hand Date of Surgery: 02/26/19 Discharge Date: 02/26/19 Treatment or Instructions: Schedule Follow Up w/ Dr. Jose Juan Ford @ [facility] to be seen in 10-14 days or as scheduled [place]: [place]: [place]: Continue splint for 10 days postoperatively. After splint removal continue keisha ssing change placing 4 x 4's between the second and third digits. Ice and elevate May begin finger range of motion attempting to make full fist. Stool softener of choice when on pain medication. USE OF [id number] IBUPROFEN: Ibuprofen (Advil, Nuprin, Medipren, Motrin IB) is a medication for fever and pain control. In addition, it has anti- inflammatory effects which may be beneficial, especially in the treatment of injuries. It's best to take ibuprofen with food. Persons with ulcer disease or allergy to aspirin should notify their physician of this before taking ibuprofen. Ibuprofen can be given every four to six hours, for a total of four doses daily. Age Pain or fever dose Antiinflammatory dose 6-8 yr 200 mg (1 tab) 200 mg (1 tab) 9-11 yr 200 mg (1 tab) 200-400 mg (1-2 tab) 11-14 yr 200-400 mg (1-2 tab) 400 mg (2 tab) 15-adult 400 mg (2 tab) 600 mg (3 tab) ORAL NARCOTIC MEDICATION: You have been given a prescription for pain control. This medication is a narcotic. It's best taken with food, as nausea can result if taken on an empty stomach. Don't operate machinery or drive within six hours of taking this medication. Do not combine this medicine with alcohol, or with any medication which can cause sedation (such as cold tablets or sleeping pills) unless you get permission from the physician. Narcotics tend to cause constipation. If possible, drink plenty of fluids and eat a diet high in fiber and fruits. Please be aware that prescription narcotics also have the potential for abuse. People become addicted to these medications because of the general sense of wellbeing that they induce. This feeling along with a significant reduction in tension, anxiety, and aggression provides a stimulating seductive quality to these drugs. Once your pain is under control, we encourage you to discard your unused narcotics. Prescriptions: Oxycodone HCl/Acetaminophen [Percocet 10-325 Mg Tablet] 1 each PO Q4 PRN #30 tablet PRN Reason: Discharge Diet: As Tolerated Respiratory Treatments at Home: Deep Breathing/Coughing Discharge Activity: No Lifting Over 10 Pounds, No Lifting/Push/Pulling Report the Following to Your Physician Immediately: Fever over 101 Degrees, Unusual Bleeding, Redness, Swelling, Warmth, Increased Soreness
[2019-02-26] MEDS ORDERED: ONDANSETRON HCL INJ/PF 4 MG/2 ML SDV IV PRN ×2 (16:49→17:34)
[2019-02-26] MEDS ORDERED: PROMETHAZINE HCL INJ 25 MG/1 ML VIAL IV PRN ×2 (16:49)
[2019-02-26] MEDS ORDERED: DIPHENHYDRAMINE HCL 50 MG/ML VIAL IV PRN (16:49)
[2019-02-26] MEDS ORDERED: MEPERIDINE HCL/PF INJ 25 MG/1 ML DISP.SYRIN IV PRN (16:49)
[2019-02-26] MEDS ORDERED: MORPHINE SULFATE 10 MG/ML INJ IV PRN (16:49)
[2019-02-26] MEDS ORDERED: FENTANYL CITRATE INJ/PF 100 MCG/2 ML AMPUL IV PRN ×3 (16:49)
[2019-02-26] MEDS ORDERED: OXYCODONE-ACETAMINOPHEN 5-325 MG TABLET PO PRN (17:35)
[2019-02-26] MEDS ORDERED: OXYCODONE-ACETAMINOPHEN 5-325 MG TABLET ONE (17:37)
[2019-02-26] MEDS ORDERED: HYDROMORPHONE HCL INJ/PF 2 MG/ML AMPULE IV PRN (18:14)
[2019-02-26 18:31] VITALS: BP 172/99
== END 2019-02-26 18:31 | disposition home or self-care (01) ==
LOC: OROUT 14:19
PROVIDERS: ATTEND Orthopaedic Surgery
DX: C44.629 Squamous cell carcinoma of skin of left upper limb, including shoulder (principal); M79.645 Pain in left finger(s); F17.210 Nicotine dependence, cigarettes, uncomplicated; J44.9 Chronic obstructive pulmonary disease, unspecified; Z88.0 Allergy status to penicillin; Z85.828 Personal history of other malignant neoplasm of skin
CPT/HCPCS: 88305 ×2; 88311; 01830; 26910; J2250; S0077; J3490; J1100; J3010; J0330; J2405; J2704; 1830

== ENCOUNTER 2019-10-27 16:49 | Emergency (ER) | payer MEDICAID ==
--- NOTE | 2019-10-27 17:38 | ER Document Report ---
ED General - General Chief Complaint: Chest Pain Stated Complaint: CHEST PAIN,VOMITING,LOW BACK PAIN Time Seen by Provider: 10/27/19 17:13 Primary Care Provider: EMILE LOCK MD [ACTIVE STAFF] - Follow up as needed Mode of Arrival: Ambulatory Information source: Patient Notes: This 59-year-old man presents to the emergency department with a 3-day history of right-sided chest pain. He states that when he takes a deep breath he feels a sharp cutting pain. He denies cough or shortness of breath and that the pain is fleeting associated with deep breath. He is also developed since yesterday nausea vomiting and diarrhea. He denies fever, dizziness or lightheadedness he has been pushing fluids in attempt to keep himself from getting dehydrated. He states that the stools are liquidy he denies blood in the vomitus or in diarrhea. TRAVEL OUTSIDE OF THE [place] IN LAST 30 DAYS: No - Related Data Allergies/Adverse Reactions: Penicillins Allergy (Verified 10/27/19 18:34) Past Medical History - Social History Smoking Status: Unknown if Ever Smoked Family History: None, Reviewed & Not Pertinent - Past Medical History Cardiac Medical History: Denies: Hx Coronary Artery Disease, Hx Heart Attack, Hx Hypertension Pulmonary Medical History: Reports: Hx Asthma - wheeze, Hx Pneumonia Denies: Hx Bronchitis, Hx COPD Neurological Medical History: Denies: Hx Cerebrovascular Accident, Hx Seizures Renal/ Medical History: Denies: Hx Peritoneal Dialysis Musculoskeletal Medical History: Denies Hx Arthritis - Immunizations Hx Diphtheria, Pertussis, Tetanus Vaccination: Yes - 2017 Review of Systems - Review of Systems Notes: Constitutional: Negative for fever. HENT: Negative for sore throat. Eyes: Negative for visual changes. Cardiovascular: Negative for chest pain. Respiratory: + Pleuritic chest pain. Gastrointestinal: + Nausea and vomiting, + diarrhea Genitourinary: Negative for dysuria. Musculoskeletal: Negative for back pain. Skin: Negative for rash. Neurological: Negative for headaches, weakness or numbness. 10 point ROS negative except as marked above and in HPI. Physical Exam - Vital signs Vitals: Temp Pulse Resp BP Pulse Ox 97.4 F 70 20 127/74 H 96 10/27/19 17:07 10/27/19 17:07 10/27/19 17:07 10/27/19 17:07 10/27/19 17:07 - Notes Notes: PHYSICAL EXAMINATION: Physical Exam: General: Well-nourished well-developed 59-year-old man in no acute distress HEENT: NC/AT, pupils equal round and reactive to light, MM moist,nares clear, oropharynx clear Neck: supple, no adenopathy, no masses. Lungs: clear, no wheezing, no rales no rhonchi, + tenderness in the right anterior chest wall with percussion CVS: Regular rate and rhythm no murmur gallop or rub Abdomen: Soft active nontender, no masses, + palpable liver edge Ext: No edema clubbing or cyanosis. Neuro: Alert and responsive, moving all 4 extremities on command, cranial nerves intact. Skin: Intact no open lesions, no rash PSYCH: Normal mood, normal affect. Course - Re-evaluation Re-evalutation: 10/27/19 17:37 Differential diagnosis Pleurisy, viral pneumonitis, viral gastroenteritis, electrolyte imbalance 10/27/19 21:18 I discussed the findings of the CT scan consistent with metastatic disease with the patient and have I have reviewed laboratory data and used this information for the treatment decisions regarding the patient. Suggested he follow-up with oncology. Patient states that he will make the appointment himself as he has to be out of town tomorrow and does not have a phone where he could be contacted. - Vital Signs Vital signs: Temp Pulse Resp BP Pulse Ox 97.6 F 71 18 126/70 H 95 10/27/19 21:52 10/27/19 21:52 10/27/19 21:52 10/27/19 21:52 10/27/19 21:52 - Laboratory Result Diagrams: 10/27/19 18:15 10/27/19 18:15 Laboratory results interpreted by me: 10/27/19 10/27/19 10/27/19 18:15 18:15 18:15 WBC 13.8 H RDW 14.4 H Lymph % (Auto) 10.1 L [place] % (Auto) 14.1 H Absolute Neuts (auto) 10.1 H Absolute Monos (auto) 1.9 H Chloride 108 H Carbon Dioxide 19 L BUN 26 H Creatinine 1.44 H Est GFR (MDRD) Non-Af 50 L Glucose 114 H Calcium 11.3 H Total Bilirubin 4.5 H Direct Bilirubin 3.6 H AST 75 H Alkaline Phosphatase 625 H Urine Protein 30 H Urine Bilirubin MODERATE H Urine Urobilinogen 4.0 H Ur Leukocyte Esterase TRACE H - Diagnostic Test Radiology reviewed: Image reviewed, Reports reviewed - Chest x-ray two-view: No infiltrate, no effusion CT abdomen and pelvis with IV contrast: Interval development of multiple liver masses consistent with metastatic disease. The largest measures 7.7 cm. There is subtle hyperdense masses within the right colon which may represent a polyp or possibly a neoplasm. No bowel obstruction. Discharge - Discharge Clinical Impression: Liver metastases, Right-sided chest pain Condition: Fair Disposition: HOME, SELF-CARE Additional Instructions: You are diagnosed with metastatic disease involving the liver tonight in the emergency department, this is a very serious diagnosis and should be followed up with an oncologist. Please contact the oncologist regarding an appointment. If you develop other symptoms or concerns prior to being seen you may return to the emergency department for further evaluation and treatment. Prescriptions: Ketorolac Tromethamine [Toradol 10 mg Tablet] 10 mg PO Q6 PRN #12 tablet PRN Reason: Referrals: EMILE LOCK MD [ACTIVE STAFF] - Follow up as needed
[2019-10-27] MEDS ORDERED: ONDANSETRON HCL INJ/PF 4 MG/2 ML SDV IV ONE (17:40)
[2019-10-27] MEDS ORDERED: NORMAL SALINE 1000 ML 1,000 ML IV ONE (17:40)
[2019-10-27] MEDS ORDERED: KETOROLAC TROMETHAMINE INJ/PF 30 MG/1 ML SDV IV ONE (17:41)
[2019-10-27 18:39] LABS: ABSOLUTE BASOPHILS # (AUTO) 0.2 10^3/uL (0.0-0.2); ABSOLUTE EOSINOPHILS # (AUTO) 0.1 10^3/uL (0.0-0.6); ABSOLUTE LYMPHOCYTES (AUTO) 1.4 10^3/uL (0.5-4.7); ABSOLUTE MONOCYTES (AUTO) 1.9 10^3/uL (0.1-1.4); ABSOLUTE NEUT (AUTO) 10.1 10^3/uL (1.7-8.2); BASOPHILS % (AUTO) 1.7 % (0-2); EOSINOPHILS % (AUTO) 0.9 % (0-6); HEMATOCRIT 47.9 % (37.9-51.0); HEMOGLOBIN 16.6 g/dL (13.5-17.0); LYMPHOCYTES % (AUTO) 10.1 % (13-45); MEAN CORPUSCULAR HEMOGLOBIN 30.8 pg (27.0-33.4); MEAN CORPUSCULAR HGB CONC 34.7 g/dL (32.0-36.0); MEAN CORPUSCULAR VOLUME 89 fl (80-97); MONOCYTES % (AUTO) 14.1 % (3-13); RED CELL DISTRIBUTION WIDTH 14.4 % (11.5-14.0); SEGMENTED NEUTROPHILS % (AUTO) 73.2 % (42-78); TOTAL CELLS COUNTED % (AUTO) 100 %; WHITE BLOOD COUNT 13.8 10^3/uL (4.0-10.5)
[2019-10-27 18:41] LABS: APPEARANCE,URINE SLIGHTLY-CLOUDY; BILIRUBIN,URINE MODERATE (NEGATIVE); COLOR,URINE AMBER; GLUCOSE, URINE NEGATIVE (NEGATIVE); KETONES,URINE NEGATIVE (NEGATIVE); LEUKOCYTE ESTERASE,URINE TRACE (NEGATIVE); NITRITE,URINE NEGATIVE (NEGATIVE); PROTEIN,URINE 30 mg/dL (NEGATIVE); URINE SPECIFIC GRAVITY 1.025
[2019-10-27 18:54] LABS: ALBUMIN 3.9 g/dL (3.5-5.0); ALKALINE PHOSPHATASE 625 U/L (38-126); ANION GAP 12 (5-19); ASPARTATE AMINO TRANSFERASE 75 U/L (17-59); BILIRUBIN,DIRECT 3.6 mg/dL (0.0-0.4); BILIRUBIN,TOTAL 4.5 mg/dL (0.2-1.3); BLOOD UREA NITROGEN 26 mg/dL (7-20); CALCIUM 11.3 mg/dL (8.4-10.2); CARBON DIOXIDE 19 mmol/L (22-30); CHLORIDE 108 mmol/L (98-107); GLUCOSE 114 mg/dL (75-110); PLATELET COUNT 309 10^3/uL (150-450); POTASSIUM 4.3 mmol/L (3.6-5.0); TOTAL PROTEIN 7.2 g/dL (6.3-8.2)
--- NOTE | 2019-10-27 19:15 | RADIOLOGY REPORT (SQ) ---
EXAM DESCRIPTION: CHEST 2 VIEWS COMPLETED DATE/TIME: 10/27/2019 5:32 pm REASON FOR STUDY: More chest pain COMPARISON: 01/28/2019 EXAM PARAMETERS: NUMBER OF VIEWS: two views TECHNIQUE: Digital Frontal and Lateral radiographic views of the chest acquired. RADIATION DOSE: NA LIMITATIONS: none FINDINGS: LUNGS AND PLEURA: No opacities, masses or pneumothorax. No pleural effusion. MEDIASTINUM AND HILAR STRUCTURES: No masses or contour abnormalities. HEART AND VASCULAR STRUCTURES: Heart normal size. No evidence for failure. BONES: No acute findings. HARDWARE: None in the chest. OTHER: No other significant finding. IMPRESSION: NO ACUTE RADIOGRAPHIC FINDING IN THE CHEST. TECHNICAL DOCUMENTATION: JOB ID: [id number] 2010 [employer]- All Rights Reserved Reading location - IP/workstation name: [email or web address]
--- NOTE | 2019-10-27 21:07 | RADIOLOGY REPORT (SQ) ---
EXAM DESCRIPTION: CT scan of the abdomen and pelvis with IV contrast CLINICAL HISTORY: 59 years Male; RUQ pain. History of left upper limb squamous cell carcinoma. TECHNIQUE: CT of the abdomen and pelvis with intravenous contrast. Five-minute delayed imaging was performed. All CT scans at this facility use dose modulation, iterative reconstruction, and/or weight based dosing when appropriate to reduce radiation dose to as low as reasonably achievable. This exam was performed according to our department optimization program which includes automated exposure control, adjustment of the mA and/or kv according to patient size and/or use of iterative reconstruction technique. COMPARISON: CT scan of the abdomen and pelvis 11/21/2018 FINDINGS: Lower chest:The lung bases are clear. The visualized portion of heart and great vessels are normal. Abdomen: Liver and biliary tree: There is been interval development of innumerable hypodense liver masses. The largest is in the central portion of the liver and measures 7.7 cm in size. Portal vein is patent. The hepatic veins are not well seen. Gallbladder is unremarkable. No biliary dilatation. The liver is enlarged and measures over 21 cm in length. Pancreas: Scattered punctate calcifications are present in the pancreas consistent with chronic pancreatitis. The appearance is stable. Spleen:Within normal limits Kidneys: Bilateral simple appearing renal cysts are noted. Kidneys are normal in size shape and position. There are prompt symmetric nephrograms and pyelograms. No hydronephrosis. Adrenal glands:Within normal limits Vascular structures: Scattered vascular calcifications in the aorta. No aneurysm. Incidental note is made of a retroaortic left renal vein. Retroperitoneum: No mass or lymphadenopathy Abdominal wall: normal GI: Diverticula are noted in the colon. No evidence of acute diverticulitis. No focal bowel wall thickening. No obstruction. In the mid right: There is an ill-defined hyperdense mass which may represent a large polyp. Neoplasm cannot be excluded. This area measures 1.9 cm. Appendix: The appendix appears normal. General: No free air. No free fluid Pelvis: Lymph nodes: No mass or lymphadenopathy Bladder: The bladder is empty Pelvis: No pelvic mass or adenopathy. Bones: No acute bone findings. IMPRESSION: 1. Interval development of multiple liver masses consistent with metastatic disease. The largest measures 7.7 cm. 2. Subtle hyperdense mass within the right colon which may represent a polyp or possibly a neoplasm. No bowel obstruction. THIS REPORT CONTAINS FINDINGS THAT MAY BE CRITICAL TO PATIENT CARE: The findings were verbally discussed via telephone conference with Dr. ALLY LANIER at 8:02 PM [employer] on 10/27/2019 .
[2019-10-27 21:52] VITALS: BP 126/70
[2019-10-27] MEDS ORDERED: HYDROCODONE/ACETAMINOPHEN 5-325 MG (6 TAB/ER DISP) PO PRN (21:59)
--- NOTE | 2019-10-28 13:24 | EKG REPORT ---
SEVERITY:- OTHERWISE NORMAL ECG - SINUS RHYTHM BORDERLINE LEFT AXIS DEVIATION : Confirmed by: Richi Gonzales MD 28-Oct-2019 13:23:55
== END 2019-10-27 22:04 | disposition home or self-care (01) ==
LOC: ER 16:49
DX: R07.1 Chest pain on breathing (principal); R07.81 Pleurodynia; C78.7 Secondary malignant neoplasm of liver and intrahepatic bile duct; K63.9 Disease of intestine, unspecified; R11.2 Nausea with vomiting, unspecified; R19.7 Diarrhea, unspecified; J45.909 Unspecified asthma, uncomplicated; Z88.0 Allergy status to penicillin
CPT/HCPCS: 93005; 36415; 85025; 80053; 81001; 71046; 74177; 93010; J1885; J2405; J7030; 96361; 96374; 96375; 99285